=== PATIENT | female | born 1985 | race Two or more races ===

== ENCOUNTER → 2017-11-05 | Outpatient (CLI) | payer OTHER ==
[~2017-11-05] MED LIST: IBUP200C8 PO; None per pt.
== END | disposition home or self-care (01) ==
LOC: STAR 15:31
PROVIDERS: ATTEND Obstetrics & Gynecology Female Pelvic Medicine and Reconstructive Surgery
DX: Z02.9 Encounter for administrative examinations, unspecified (principal)